=== PATIENT | female | born 1975 | race Caucasian/White ===

== ENCOUNTER 2017-01-14 11:01 | Outpatient (CLI) | payer OTHER ==
[~2017-01-14] VITALS: Ht 149.9 cm; Wt 63.5 kg
== END 2017-01-14 11:54 ==
LOC: PREOP 11:01
PROVIDERS: ATTEND Urology
DX: Z01.818 Encounter for other preprocedural examination (principal); N36.42 Intrinsic sphincter deficiency (ISD); N39.46 Mixed incontinence; N32.81 Overactive bladder; N81.10 Cystocele, unspecified

== ENCOUNTER 2017-01-16 05:59 | Day surgery (SDC) | payer OTHER ==
[~2017-01-16] VITALS: Ht 149.9 cm; Wt 66.4 kg
[2017-01-16] MEDS ORDERED: cefTRIAXone 1 GM (ROCEPHIN) VIAL ONE (06:15)
[2017-01-16] MEDS ORDERED: NS (IVPB) 50 ML ONE (06:16)
[2017-01-16] MEDS: LACTATED RINGERS 1,000 ML IV PRN ×2 (06:20→08:00)
[2017-01-16 06:36] VITALS: BP 164/96
[2017-01-16] MEDS ORDERED: LACTATED RINGERS 1,000 ML IV ONE ×2 (07:05→08:35)
[2017-01-16] MEDS ORDERED: ONDANSETRON 4 MG/2 ML (SDV) Z0FRAN ONE (07:05)
[2017-01-16] MEDS ORDERED: LIDOCAINE PF 2% 10 ML (XYLOCAINE) AMP ONE (07:05)
[2017-01-16] MEDS ORDERED: SEVOFLURANE (ULTANE) 15 ML INHAL SOLN ONE (07:05)
[2017-01-16] MEDS ORDERED: DEXAMETHASONE PF 10 MG/ML (DECADRON) VIAL ONE (07:05)
[2017-01-16] MEDS ORDERED: proPOfol 200 MG/20 ML (DIPRIVAN) VIAL IV ONE (07:05)
[2017-01-16] MEDS ORDERED: fentaNYL INJECTION 250 MCG/5 ML AMP ONE (07:06)
[2017-01-16] MEDS ORDERED: MIDAZOLAM 2 MG/2 ML (VERSED) VIAL ONE (07:06)
--- NOTE | 2017-01-16 07:12 | Progress Note-Pre Operative ---
Pre-Operative Progress Note H&P Reviewed The H&P was reviewed, patient examined and no changes noted. Date H&P Reviewed: January 16, 2017 Time H&P Reviewed: 07:12 Pre-Operative Diagnosis: MIXED INCONTINENCE, OAB, ISD, CYSTOCELE MG QIU MD January 16, 2017 7:12 am
[2017-01-16] MEDS ORDERED: ESTRADIOL VAGINAL CREAM 42.5 GM (ESTRACE) VG ONE (07:13)
[2017-01-16] MEDS ORDERED: LIDOCAINE/EPI 1%-1:100,000 (XYLOCAINE) 20ML ONE (07:13)
[2017-01-16] MEDS ORDERED: cefTRIAXone 1 GM/NS 50 ML IVPB IV ONE ×2 (07:30)
[2017-01-16] MEDS ORDERED: LACTATED RINGERS 1,000 ML IV SCH (08:22)
--- NOTE | 2017-01-16 08:22 | Progress Note-Post Operative ---
Post-Operative Progess Note Surgeon (s)/Hydroelectric Systems Technician (s) Surgeon MG QIU MD Hydroelectric Systems Technician: N/A Pre-Operative Diagnosis MIXED INCONTINENCE, OAB, ISD, CYSTOCELE Post-Operative Diagnosis SAME Procedure & Operative Findings Date of Procedure 01/16/17 Procedure Preformed/Findings ANTERIOR REPAIR, PVS, AND CYSTO Anesthesia Type GENERAL Estimated Blood Loss Estimated blood loss (mL): 150CC Specimens/Packing Specimens Removed NONE TO PATH Packing: ESTRACE VAG PACK MG QIU MD January 16, 2017 8:22 am
[2017-01-16] MEDS ORDERED: KETOROLAC 30 MG/ML VIAL IV PRN (08:30)
[2017-01-16] MEDS ORDERED: HYDROcodone/APAP 10 MG/325 MG (LORTAB) TAB PO PRN (08:30)
[2017-01-16] MEDS ORDERED: HYDROmorphone (DILAUDID) 2 MG/ML VIAL IVP PRN (08:45)
[2017-01-16] MEDS ORDERED: ONDANSETRON 4 MG/2 ML (SDV) Z0FRAN IVP PRN (08:45)
[2017-01-16] MEDS ORDERED: MEPERIDINE (DEMEROL) INJ 50 MG/ML IVP PRN (08:45)
[2017-01-16] MEDS ORDERED: morphine INJ 10 MG/ML 1ML (SYR OR VIAL) IVP PRN (08:45)
--- NOTE | 2017-01-16 08:52 | OPERATIVE REPORT ---
DATE OF SERVICE: 01/16/2017 PREOPERATIVE DIAGNOSES: Mixed urinary incontinence with overactive bladder, intrinsic sphincter deficiency and cystocele. POSTOPERATIVE DIAGNOSES: Mixed urinary incontinence with overactive bladder, intrinsic sphincter deficiency and cystocele. OPERATION PERFORMED: Anterior repair to vaginal skin and cystoscopy. SURGEON: Joe Qiu MD ANESTHESIA: General. COMPLICATIONS: None. DESCRIPTION OF PROCEDURE: Under satisfactory general anesthesia, the patient was placed in the lithotomy position and genitalia were prepped and draped in usual sterile fashion with a vaginal prep. Hernandez catheter was inserted and the bladder was drained. The anterior vaginal wall was infiltrated with lidocaine and epinephrine. Midline incision was made 2 cm from the meatus and carried toward the bladder neck. The vaginal mucosa was dissected off the fascia under it. Dissection was carried laterally. The fascia was approximated using interrupted 2-0 Vicryl, giving an excellent support to the bladder. Then, the Solyx pubovaginal sling was passed on both sides using the described technique. The sling was sitting nicely under the mid urethra with no twisting and no tension. Passage of a curved Hemostat easily between the underlying tissue. The Hernandez catheter was removed. Cystoscopy was performed to confirm the integrity of the bladder, ureteral orifices and urethra. There was no foreign body. The bladder was left half full to perform a manual Valsalva maneuver after removing the cystoscope and it was negative. The cystoscopy also confirmed the sling to be under the mid urethra. The Hernandez catheter was then inserted, draining again clear fluid. The excess vaginal mucosa was sharply excised and the mucosa was approximated with running 2-0 Vicryl, repeat type. vaginal pack was inserted. Estimated blood loss was 150 mL, none of which was replaced. Needle, sponge and instrument counts were correct x2. The patient tolerated the procedure and anesthesia well and was sent to recovery room in stable condition. Job ID: [id number] DocumentID: [id number] Dictated Date: 01/16/2017 08:30:27 Marine Steward Date: 01/16/2017 08:52:08 Dictated By: JOE QIU MD
[2017-01-16 09:25] VITALS: BP 145/81
[2017-01-16 12:00] VITALS: BP 145/82
[2017-01-16 16:00] VITALS: BP 123/77
[2017-01-16 19:25] VITALS: BP 156/75
[2017-01-17 00:17] VITALS: BP 115/59
[2017-01-17 04:03] VITALS: BP 128/79
[2017-01-17 06:00] LABS: BASOPHILS % (AUTO) 0 % (0-10); EOSINOPHILS % (AUTO) 0 % (0-10); LYMPHOCYTES # (AUTO) 2.7 X 10^3 (1.0-4.0); LYMPHOCYTES % (AUTO) 24 % (12-44); MEAN CORPUSCULAR HEMOGLOBIN 30 PG (25-34); MEAN CORPUSCULAR HGB CONC 34 G/DL (32-36); MEAN CORPUSCULAR VOLUME 90 FL (80-99); MEAN PLATELET VOLUME 9.6 FL (7.4-10.4); MONOCYTES # (AUTO) 0.8 X 10^3 (0.0-1.0); MONOCYTES % (AUTO) 7 % (0-12); NEUTROPHILS # (AUTO) 7.6 X 10^3 (1.8-7.8); NEUTROPHILS % (AUTO) 69 % (42-75); PLATELET COUNT 248 10^3/uL (130-400); RED BLOOD COUNT 3.93 10^6/uL (4.35-5.85); RED CELL DISTRIBUTION WIDTH 12.4 % (10.0-14.5); WHITE BLOOD COUNT 11.1 10^3/uL (4.3-11.0)
[2017-01-17 06:23] LABS: ANION GAP 10 MMOL/L (5-14); BLOOD UREA NITROGEN 9 MG/DL (7-18); BUN/CREATININE RATIO 12; CARBON DIOXIDE 20 MMOL/L (21-32); CHLORIDE 110 MMOL/L (98-107); CREATININE SERUM 0.76 MG/DL (0.60-1.30); POTASSIUM 3.8 MMOL/L (3.6-5.0); SODIUM 140 MMOL/L (135-145)
[2017-01-17 06:24] LABS: CALCIUM 8.7 MG/DL (8.5-10.1); GFR ESTIMATED > 60; GLUCOSE 149 MG/DL (70-105)
[2017-01-17 06:29] LABS: BAND NEUTROPHILS 0 %; BASOPHILS % (MANUAL) 0 %; EOSINOPHILS % (MANUAL) 0 %; LYMPHOCYTES % (MANUAL) 24 %; NEUTROPHILS % (MANUAL) 72 %
[2017-01-17 08:00] VITALS: BP 129/85
[2017-01-17] MEDS ORDERED: LEVOFLOXACIN 250 MG/50 ML IVPB 50 ML IV SCH (08:22)
[2017-01-17] MEDS ORDERED: CIPR-225 PO (11:15)
== END 2017-01-17 12:45 | disposition home or self-care (01) ==
LOC: SDC 05:59 → 4TH 09:25 → SDC 01-17 12:45
PROVIDERS: ATTEND Urology
DX: N36.42 Intrinsic sphincter deficiency (ISD) (principal); N39.46 Mixed incontinence; N32.81 Overactive bladder; N81.10 Cystocele, unspecified
CPT/HCPCS: 36415; 80048; 85007; 85027; 87081; 94664